=== PATIENT | female | born 1955 | race Two or more races ===

== ENCOUNTER 2020-12-04 13:08 | Outpatient (CLI) | payer OTHER | END 2020-12-04 13:19 | disposition home or self-care (01) | LOC: SONOGRAMA 13:08 → MAMO-SONO 13:15 → SONOGRAMA 13:19 | PROVIDERS: ATTEND Internal Medicine Cardiovascular Disease | DX: M19.90 Unspecified osteoarthritis, unspecified site (principal) ==

== ENCOUNTER 2023-03-26 11:59 | Outpatient (CLI) | payer OTHER | END 2023-03-26 12:08 | disposition home or self-care (01) | LOC: MRI 11:59 | PROVIDERS: ATTEND Orthopaedic Surgery | DX: S83.200A Bucket-handle tear of unspecified meniscus, current injury, right knee, initial encounter (principal); S83.201A Bucket-handle tear of unspecified meniscus, current injury, left knee, initial encounter | CPT/HCPCS: 73721 ==

== ENCOUNTER 2024-02-17 08:25 | Outpatient (CLI) | payer OTHER | END 2024-02-17 08:27 | disposition home or self-care (01) | LOC: SONOGRAMA 08:25 | PROVIDERS: ATTEND Pathology Anatomic Pathology | DX: D34 Benign neoplasm of thyroid gland (principal); E07.89 Other specified disorders of thyroid; E04.1 Nontoxic single thyroid nodule ==

== ENCOUNTER 2025-01-22 08:46 | Outpatient (CLI) | payer OTHER | END 2025-01-22 08:47 | disposition home or self-care (01) | LOC: SONOGRAMA 08:46 | PROVIDERS: ATTEND Pathology Anatomic Pathology & Clinical Pathology | DX: D34 Benign neoplasm of thyroid gland (principal); E04.1 Nontoxic single thyroid nodule ==